=== PATIENT | female | born 1985 | race African-American/Black ===

== ENCOUNTER 2024-02-15 18:57 | Emergency (ER) | payer SELFPAY ==
[2024-02-15 19:33] VITALS: TEMP 98.3; BMI 29.0
[2024-02-15] MEDS ORDERED: METOCLOPRAMIDE HCL INJECTION 10 MG/2 ML VIAL ONE (19:40)
[2024-02-15] MEDS ORDERED: ACETAMINOPHEN INJECTION 100 ML ONE (19:40)
[2024-02-15] MEDS: ACETAMINOPHEN 1000 MG/100 ML BAG IVPB ONE (19:55)
[2024-02-15] MEDS: METOCLOPRAMIDE HCL INJECTION 10 MG/2 ML VIAL IVPUSH ONE (19:55)
[2024-02-15] MEDS: SODIUM CHLORIDE 0.9% 500 ML INFUS.BAG IV ONE (19:55)
[2024-02-15 20:04] LABS: BASO % 0.2 % (0-2.0); EOS % 0.1 % (0-4.5); HEMATOCRIT 34.7 % (32.4-45.2); HEMOGLOBIN 10.9 GM/dL (10.7-15.3); LYMPH % 17.4 % (8-40); MCHC 31.4 g/dl (32.0-36.0); MEAN PLT VOLUME 7.9 fl (7.5-11.1); MONO % 7.3 % (3.8-10.2); PLATELET COUNT 346 10^3/uL (134-434); RBC 4.96 M/mm3 (3.60-5.2); RDW 18.1 % (11.6-15.6); WHITE BLOOD COUNT 8.7 K/mm3 (4.0-10.0)
[2024-02-15 20:17] LABS: INR 1.01 (0.83-1.09); PROTHROMBIN TIME (PATIENT) 11.4 SEC (9.7-13.0)
[2024-02-15 20:18] LABS: EPI CELLS 28 /uL (0-25.1); HYALINE CASTS 3 /uL (0-3.1); PH,URINE 7.5 (5.0-8.0); URINE APPEARANCE CLOUDY; URINE BACTERIA >9,000 /uL (0-1359); URINE BILIRUBIN NEGATIVE (NEGATIVE); URINE COLOR YELLOW; URINE GLUCOSE (UA) NEGATIVE (NEGATIVE); URINE KETONE NEGATIVE (NEGATIVE); URINE LEUK ESTERASE TRACE (NEGATIVE); URINE NITRITE POSITIVE (NEGATIVE); URINE PROTEIN NEGATIVE (NEGATIVE); URINE RBC 12 /uL (0-23.9); URINE UROBILINOGEN 0.2 mg/dL (0.2-1.0); URINE WBC 26 /uL (0-25.8)
[2024-02-15 20:20] LABS: ACTIVATED PTT 32.4 SECONDS (25.2-36.5)
[2024-02-15 20:21] LABS: POTASSIUM 3.9 mmol/L (3.5-5.1)
[2024-02-15 20:23] LABS: CALCIUM 9.7 mg/dL (8.5-10.1)
[2024-02-15 20:24] LABS: ALBUMIN 4.4 g/dl (3.4-5.0); BLOOD UREA NITROGEN 12.8 mg/dL (7-18)
[2024-02-15 20:27] LABS: CREATININE 0.9 mg/dL (0.55-1.3)
[2024-02-15 20:28] LABS: BILIRUBIN,TOTAL 0.3 mg/dL (0.2-1)
[2024-02-15 20:29] LABS: TOT PROT 8.6 g/dl (6.4-8.2)
[2024-02-15 20:31] LABS: ANISOCYTOSIS 3+; MACROCYTOSIS 0; OVALOCYTE 1+
[2024-02-15 21:20] LABS: HIV INTERPRETATION NEGATIVE (NEGATIVE)
[2024-02-15 21:54] VITALS: BP 149/81; PULSE 68; RESP 18
[2024-02-15] MEDS ORDERED: KETOROLAC TROMETHAMINE 15 MG/ML VIAL ONE (22:33)
[2024-02-15] MEDS: KETOROLAC TROMETHAMINE 15 MG/ML VIAL IVPUSH ONE (22:35)
== END 2024-02-15 22:54 | disposition home or self-care (01) ==
LOC: JER 18:57
PROC: 3E033NZ Introduction of Analgesics, Hypnotics, Sedatives into Peripheral Vein, Percutaneous Approach (ICD-10-PCS; principal; 2024-02-15)
PROC: 3E0333Z Introduction of Anti-inflammatory into Peripheral Vein, Percutaneous Approach (ICD-10-PCS; 2024-02-15)
PROC: 3E033GC Introduction of Other Therapeutic Substance into Peripheral Vein, Percutaneous Approach (ICD-10-PCS; 2024-02-15)
DX: R51.9 Headache, unspecified (principal); R42 Dizziness and giddiness; R11.2 Nausea with vomiting, unspecified
CPT/HCPCS: 36415; 70450-TC; 80053; 81003; 83735; 84703; 85025; 85610; 85730; 86803; 86850; 86900; 86901; 87086; 87186; 87389; 93005; 93010; 99285-25; J0131